=== PATIENT | male | born 1960 | race Asian ===

== ENCOUNTER 2017-11-18 14:43 | Observation (INO) | payer OTHER ==
[2017-11-18 15:19] LABS: ADD MAN DIFF? NO
[2017-11-18 15:24] LABS: BASOPHIL # 0.1 10^3/ul (0.0-0.1); BASOPHILS % 0.9 % (0.0-2.0); EOSINOPHILS # 0.2 10^3/ul (0.0-0.5); EOSINOPHILS % 2.4 % (0.0-7.0); HEMATOCRIT 46.1 % (42.0-52.0); HEMOGLOBIN 15.8 g/dl (14.0-18.0); LYMPHOCYTES # 1.8 10^3/ul (0.8-2.9); LYMPHOCYTES % 25.5 % (15.0-51.0); MEAN CORPUSCULAR HEMOGLOBIN 30.8 pg (29.0-33.0); MEAN CORPUSCULAR HGB CONC 34.3 g/dl (32.0-37.0); MEAN CORPUSCULAR VOLUME 89.9 fl (82.0-101.0); MEAN PLATELET VOLUME 11.8 fl (7.4-10.4); MONOCYTE # 0.4 10^3/ul (0.3-0.9); MONOCYTES % 6.3 % (0.0-11.0); NEUTROPHIL # 4.5 10^3/ul (1.6-7.5); NEUTROPHILS % 63.6 % (39.0-77.0); PLATELET COUNT 181 10^3/UL (140-415); RED BLOOD COUNT 5.13 10^6/ul (4.70-6.10); RED CELL DISTRIBUTION WIDTH 12.4 % (11.5-14.5)
[2017-11-18 15:41] LABS: ALANINE AMINOTRANSFERASE 47 IU/L (13-69); ALBUMIN 4.3 g/dl (3.3-4.9); ALBUMIN/GLOBULIN RATIO 1.34; ALKALINE PHOSPHATASE 76 IU/L (42-121); ANION GAP 16 (8-16); ASPARTATE AMINO TRANSFERASE 30 IU/L (15-46); BILIRUBIN,INDIRECT 0.6 mg/dl (0-1.1); BILIRUBIN,TOTAL 0.6 mg/dl (0.2-1.3); BLOOD UREA NITROGEN 17 mg/dl (7-20); CARBON DIOXIDE 25 mmol/L (21-31); CHLORIDE 105 mmol/L (97-110); CREATININE 1.07 mg/dl (0.61-1.24); GLUCOSE 165 mg/dl (70-220); LIPASE 100 U/L (23-300); POTASSIUM 3.7 mmol/L (3.5-5.1); SODIUM 142 mmol/L (135-144); TOTAL PROTEIN 7.5 g/dl (6.1-8.1)
[2017-11-18] MEDS: SOD CHLORIDE 0.9% 500 ML IV (15:49)
[2017-11-18] MEDS: ASPIRIN 81 MG TAB PO (15:50)
[2017-11-18] MEDS: NITROGLYCERIN (SL) 0.4 MG TAB SL (15:51)
[2017-11-18 15:53] LABS: TROPONIN-I < 0.010 ng/ml (0.000-0.120)
[2017-11-18] MEDS ORDERED: ZOLPIDEM 5 MG TAB PO (17:00)
[2017-11-18] MEDS ORDERED: IBUPROFEN 600 MG TAB PO (17:00)
[2017-11-18] MEDS ORDERED: morphine 2 MG INJ IV (17:00)
[2017-11-18] MEDS ORDERED: MAGNESIUM HYDROXIDE 30ML CUP PO (17:00)
[2017-11-18] MEDS ORDERED: DOCUSATE SODIUM 100 MG CAP PO (17:00)
[2017-11-18] MEDS ORDERED: ONDANSETRON 4 MG INJ IV (17:00)
[2017-11-18] MEDS ORDERED: HYDROCODONE/APAP (5/325) TAB PO (17:00)
[2017-11-18] MEDS ORDERED: NACL 0.9% 3 ML SYG IV (17:00)
[2017-11-18] MEDS ORDERED: LABETALOL HCL 20MG INJ IV (19:30)
[2017-11-18] MEDS: AMLODIPINE 5 MG TAB PO (19:55)
[2017-11-18 21:29] LABS: TROPONIN-I 0.016 ng/ml (0.000-0.120)
[2017-11-19 08:03] LABS: ADD MAN DIFF? NO
[2017-11-19 08:10] LABS: BASOPHIL # 0.1 10^3/ul (0.0-0.1); EOSINOPHILS # 0.1 10^3/ul (0.0-0.5); EOSINOPHILS % 2.2 % (0.0-7.0); HEMATOCRIT 44.5 % (42.0-52.0); HEMOGLOBIN 14.9 g/dl (14.0-18.0); LYMPHOCYTES # 1.4 10^3/ul (0.8-2.9); LYMPHOCYTES % 24.1 % (15.0-51.0); MEAN CORPUSCULAR HEMOGLOBIN 30.5 pg (29.0-33.0); MEAN CORPUSCULAR HGB CONC 33.5 g/dl (32.0-37.0); MEAN CORPUSCULAR VOLUME 91.2 fl (82.0-101.0); MEAN PLATELET VOLUME 11.3 fl (7.4-10.4); MONOCYTE # 0.4 10^3/ul (0.3-0.9); NEUTROPHIL # 3.9 10^3/ul (1.6-7.5); NEUTROPHILS % 65.7 % (39.0-77.0); PLATELET COUNT 171 10^3/UL (140-415); RED BLOOD COUNT 4.88 10^6/ul (4.70-6.10); RED CELL DISTRIBUTION WIDTH 12.4 % (11.5-14.5)
[2017-11-19 08:21] LABS: HEMOGLOBIN A1C 6.8 % (0-5.9)
[2017-11-19 08:30] LABS: ANION GAP 9 (8-16); BLOOD UREA NITROGEN 15 mg/dl (7-20); CALCIUM 8.9 mg/dl (8.4-10.2); CARBON DIOXIDE 29 mmol/L (21-31); CHLORIDE 109 mmol/L (97-110); CHOL/HDL RATIO 4.2 RATIO; CHOLESTEROL 169 mg/dl (100-200); GLUCOSE 144 mg/dl (70-220); HDL CHOLESTEROL 40 mg/dl (28-71); LDL CHOLESTEROL,CALCULATED 104 mg/dl; MAGNESIUM 2.1 mg/dl (1.7-2.5); PHOSPHORUS 3.1 mg/dl (2.5-4.9); POTASSIUM 4.1 mmol/L (3.5-5.1); SODIUM 143 mmol/L (135-144); TRIGLYCERIDES 124 mg/dl (0-149)
[2017-11-19] MEDS: ALLOPURINOL 300 MG TAB PO (09:00)
[2017-11-19] MEDS: GABAPENTIN 300 MG CAP PO (09:00)
[2017-11-19] MEDS: METOPROLOL (XL) 50 MG TAB PO ×2 (09:00→16:27)
[2017-11-19] MEDS ORDERED: AMLODIPINE 5 MG TAB PO ×2 (09:00)
[2017-11-19] MEDS: AMLODIPINE 10 MG TAB PO ×2 (09:00→16:26)
[2017-11-19 09:08] LABS: TROPONIN-I 0.011 ng/ml (0.000-0.120)
[2017-11-19] MEDS: NITROGLYCERIN (SL) 0.4 MG TAB SL (11:03)
[2017-11-19] MEDS: ACETAMINOPHEN 325 MG TAB PO (11:27)
[2017-11-19] MEDS: REGADENOSON 0.4 MG/5 ML SYG (13:57)
[2017-11-19] MEDS ORDERED: morphine LIQ (10 MG/5 ML) CUP PO (17:00)
[2017-11-20] MEDS ORDERED: ASPIRIN 81 MG TAB PO (09:00)
== END 2017-11-19 19:10 | disposition home or self-care (01) ==
LOC: E/R 14:43 → TEL 16:20
DX: R07.9 Chest pain, unspecified (principal); R20.0 Anesthesia of skin; M19.90 Unspecified osteoarthritis, unspecified site; M10.9 Gout, unspecified; I71.2 Thoracic aortic aneurysm, without rupture
CPT/HCPCS: 36415; 71045; 78452; 80048; 80053; 80061; 83036; 83690; 83735; 84100; 84484; 85025; 93005; 93017; 93306; 94660; 99285-25; G0378